=== PATIENT | female | born 1945 | race Caucasian/White ===

== ENCOUNTER 2016-08-31 16:25 | Inpatient (IN) ==
[2016-09-01 05:35] LABS: Basophils % 0.4 %; Eosinophils # 0.1 K/mcL (0.0-0.6); Hematocrit 38.7 % (35.3-44.9); Immature Granulocytes % 0.2 % (0-4); Lymphocytes # 1.5 K/mcL (0.6-4.6); Lymphocytes % 30.6 %; Mean Corpuscular HGB Conc 33.6 g/dL (31.6-35.5); Mean Corpuscular Hemoglobin 28.7 pg (28.0-33.3); Mean Corpuscular Volume 85.4 fL (83.0-100.0); Mean Platelet Volume 9.4 fL (9.4-12.4); Monocytes # 0.7 K/mcL (0.0-1.3); Monocytes % 13.4 %; Neutrophils # 2.6 K/mcL (1.6-8.9); Platelet Count 223 K/mcL (140-400); Red Blood Count 4.53 M/mcL (3.82-4.97); Red Cell Distribution Width 13.1 % (11.5-14.5); Segmented Neutrophils % 53.4 %
[2016-09-01 05:37] LABS: INR 1.1; Prothrombin Time 11.8 Seconds (9.4-12.1)
[2016-09-01 05:39] LABS: Activated Partial Thrombo Time 33.1 Seconds (26.0-36.0)
[2016-09-01 05:44] LABS: BUN/Creatinine Ratio 19 (6-26); Blood Urea Nitrogen 15 mg/dL (7-20); Calcium 9.5 mg/dL (8.6-10.8); Carbon Dioxide 23 mEq/L (19-29); Chloride 109 mEq/L (98-109); Glucose 95 mg/dL (70-99); Osmolality,Calculated 293 (280-300); Sodium 141 mEq/L (136-145); eGFR For African Americans > 60 (> 60); eGFR For Non-African Americans > 60 (> 60)
[2016-09-01] MEDS: Aspirin 81 MG TAB.CHEW PO SCH (09:20)
--- NOTE | 2016-09-01 12:44 | Internal Med History&Physical ---
Date of Encounter: 09/01/16 Time of Encounter: 12:42 Assessment and Plan (1) CVA (cerebral vascular accident) Current visit: Yes Status: Acute CVA with some left-sided weakness. Qualifiers: Qualified Code(s): I63.9 - Cerebral infarction, unspecified (2) MVP (mitral valve prolapse) Current visit: No Status: Acute Currently MVP is not causing any problems from clinic clear where it may have contributed to her CVA revealed. Bowel Internal Medicine - H&P: HPI Chief complaint: CVA Admitted From: Hospital to Hospital Transfer Plans for Post Hospital Care: Home History of present illness: Ms. Glover is a 71 year old female Past Med Surg Social Fam HX - Past Medical History Medical history: arthritis, CVA, valvular heart disease Psychiatric history: no psych history - Past Surgical History Surgical History: hysterectomy - Social History Smoking Status: Never smoker Internal Medicine - H&P: Meds No Known Home Drugs 08/31/16 [History] Allergies No Known Allergies Allergy (Verified 08/31/16 17:08) All Systems PM: A 10-system review of systems was performed and is negative for pertinent findings except as documented above in the HPI. - Constitutional Vitals: Temp Pulse Resp BP Pulse Ox 98.2 F 64 18 128/82 93 L 09/01/16 12:19 09/01/16 12:19 09/01/16 12:19 09/01/16 12:19 09/01/16 12:19 - Head Head exam: Present: atraumatic, normal inspection, normocephalic - Neck Neck exam general surgery: Present: supple, trachea midline. Absent: lymphadenopathy - Respiratory Respiratory exam: Present: CTAB. Absent: accessory muscle use, rales, rhonchi, wheezes - Cardiovascular Cardiovascular exam: Present: RRR, +S1, +S2. Absent: diastolic murmur, gallop, rubs, systolic murmur Additional comments: History of mitral valve prolapse - GI/Abdominal GI/Abdominal exam: Present: normal bowel sounds, soft, no peritoneal signs. Absent: distended, tenderness Internal Med - H&P Results - Labs CBC & Chem 7: 09/01/16 05:10 09/01/16 05:10 Labs: Short CBC 09/01/16 Range/Units 05:10 WBC 4.9 (4.3-11.1) K/mcL Hgb 13.0 (11.5-15.4) g/dL Hct 38.7 (35.3-44.9) % Plt Count 223 (140-400) K/mcL Neutrophils # 2.6 (1.6-8.9) K/mcL BMP 09/01/16 05:10 Sodium 141 Potassium 4.0 Chloride 109 Carbon Dioxide 23 BUN 15 Creatinine 0.81 Glucose 95 Calcium 9.5 Lab is stable - VTE Documentation of Mechanical Device: Graduated compression elastic hosiery
[2016-09-02] MEDS: Aspirin 81 MG TAB.CHEW PO SCH (10:11)
--- NOTE | 2016-09-02 11:42 | Internal Med Progress Note ---
Date of Encounter: 09/02/16 Time of Encounter: 11:40 - Assessment and plan (1) CVA (cerebral vascular accident) Current Visit: Yes Status: Acute Assessment and plan: Residual left-sided neglect. Double vision. PTOT to work on safety and balance. We will work on improving ADL Qualifiers: CVA mechanism: occlusion Precerebral and cerebral artery: anterior cerebral artery Laterality of affected vessel: unspecified Qualified Code(s) : I63.529 - Cerebral infarction due to unspecified occlusion or stenosis of unspecified anterior cerebral artery - Time Spent With Patient less than 15 minutes - Subjective Interval history: Still complaining of the same left-sided neglect" and blurred vision. No headache. No shortness of breath. No chest pain. No confusion. Good oral intake. No pain. - Constitutional Vitals: Temp Pulse Resp BP Pulse Ox 97.1 F L 54 16 113/67 95 09/02/16 07:49 09/02/16 07:49 09/02/16 07:49 09/02/16 07:49 09/02/16 07:49 General appearance: Present: A&O X 3, pleasant, no acute distress - Eye Additional comments: Blurred vision noted. - Respiratory Respiratory exam: Present: CTAB. Absent: accessory muscle use, rales, rhonchi, wheezes - Cardiovascular Cardiovascular exam: Present: RRR, +S1, +S2. Absent: diastolic murmur, gallop, rubs, systolic murmur - GI/Abdominal GI/Abdominal exam: Present: normal bowel sounds, soft, no peritoneal signs. Absent: distended, tenderness - Extremities Exam Extremities exam: Present: warm, radial pulses palpable and symetrical. Absent : calf tenderness, cyanotic, pedal edema Internal Medicine: Result - Labs CBC & Chem 7: 09/01/16 05:10 09/01/16 05:10 - ABG Interpretation ABG results: PT/INR, D-dimer PT 11.8 Seconds (9.4-12.1) 09/01/16 05:10 - VTE Documentation of Mechanical Device: Graduated compression elastic hosiery Consult Discharge Plan - Plan Referrals: Evelia Madera MD [Primary Care Provider] -
--- NOTE | 2016-09-03 00:11 | Internal Med Progress Note ---
Date of Encounter: 09/03/16 Time of Encounter: 07:55 - Assessment and plan (1) CVA (cerebral vascular accident) Current Visit: Yes Status: Acute Assessment and plan: Residual left-sided neglect. Patient compensating well for diplopia at this time. Will continue to assess.Double vision. PTOT to work on safety and balance. We will work on improving ADL Qualifiers: CVA mechanism: occlusion Precerebral and cerebral artery: anterior cerebral artery Laterality of affected vessel: unspecified Qualified Code(s) : I63.529 - Cerebral infarction due to unspecified occlusion or stenosis of unspecified anterior cerebral artery - Time Spent With Patient less than 15 minutes - Subjective Interval history: Still complaining of the same left-sided neglect" and blurred vision. No headache. No shortness of breath. No chest pain. No confusion. Good oral intake. No pain. - Constitutional Vitals: Temp Pulse Resp BP Pulse Ox 97.3 F L 93 20 124/57 93 L 09/02/16 19:12 09/02/16 19:12 09/02/16 19:12 09/02/16 19:12 09/02/16 19:12 General appearance: Present: A&O X 3, pleasant, no acute distress - Eye Eye exam: Absent: nystagmus Additional comments: Diplopia noted - Respiratory Respiratory exam: Present: CTAB. Absent: accessory muscle use, rales, rhonchi, wheezes - Cardiovascular Cardiovascular exam: Present: RRR, +S1, +S2. Absent: diastolic murmur, gallop, rubs, systolic murmur - GI/Abdominal GI/Abdominal exam: Present: normal bowel sounds, soft, no peritoneal signs. Absent: distended, tenderness - Extremities Exam Extremities exam: Present: warm, radial pulses palpable and symetrical. Absent : calf tenderness, cyanotic, pedal edema - Neurological Exam Neurological exam: Present: oriented X3, no focal deficits. Absent: pronater drift, facial droop, speech deficit Internal Medicine: Result - Labs CBC & Chem 7: 09/01/16 05:10 09/01/16 05:10 - ABG Interpretation ABG results: PT/INR, D-dimer PT 11.8 Seconds (9.4-12.1) 09/01/16 05:10 - VTE Documentation of Mechanical Device: Graduated compression elastic hosiery Consult Discharge Plan - Plan Referrals: Gryniuk,Evelia, MD [Primary Care Provider] -
[2016-09-03] MEDS: Aspirin 81 MG TAB.CHEW PO SCH (08:03)
[2016-09-04] MEDS: Aspirin 81 MG TAB.CHEW PO SCH (10:14)
--- NOTE | 2016-09-04 13:14 | Internal Med Progress Note ---
Date of Encounter: 09/04/16 Time of Encounter: 13:13 - Assessment and plan (1) CVA (cerebral vascular accident) Current Visit: Yes Status: Acute Assessment and plan: Patient's here for rotation due to her CVA. Please see PT OT TR as speech note Qualifiers: CVA mechanism: occlusion Precerebral and cerebral artery: anterior cerebral artery Laterality of affected vessel: unspecified Qualified Code(s) : I63.529 - Cerebral infarction due to unspecified occlusion or stenosis of unspecified anterior cerebral artery (2) MVP (mitral valve prolapse) Current Visit: No Status: Acute Assessment and plan: Not currently a clinical problem - Time Spent With Patient less than 15 minutes - Subjective Interval history: No new problems noted. - Constitutional Vitals: Temp Pulse Resp BP Pulse Ox 98.1 F 62 16 125/66 96 09/04/16 07:00 09/04/16 07:51 09/04/16 07:51 09/04/16 07:51 09/04/16 07:51 General appearance: Present: A&O X 3, pleasant, no acute distress - Head Head exam: Present: atraumatic, normal inspection, normocephalic - Neck Neck exam general surgery: Present: supple, trachea midline. Absent: lymphadenopathy - Respiratory Respiratory exam: Present: CTAB. Absent: accessory muscle use, rales, rhonchi, wheezes - Cardiovascular Cardiovascular exam: Present: RRR, +S1, +S2. Absent: diastolic murmur, gallop, rubs, systolic murmur Internal Medicine: Result - Labs CBC & Chem 7: 09/01/16 05:10 09/01/16 05:10 Labs: Lab is stable - ABG Interpretation ABG results: PT/INR, D-dimer PT 11.8 Seconds (9.4-12.1) 09/01/16 05:10 - VTE Documentation of Mechanical Device: Graduated compression elastic hosiery Consult Discharge Plan - Plan Referrals: Evelia Madera MD [Primary Care Provider] -
--- NOTE | 2016-09-04 15:26 | Psychological Evaluation ---
Date of Encounter: 09/04/16 Time of Encounter: 10:30 History of Present Illness History of present illness: Ms. Glover is a 71 year old female admitted to [facility] for inpatient rehabilitation following a recent CVA. Ms. Glover acknowledged that she had experienced some weakness in her left hand, changes in her vision and problems with her balance for several days before she realized that she needed medical attention. She was seen on this date to assess her current cognitive and emotional functioning. Past Medical History Medical history: Significant for arthritis and valvular heart disease. - Psychiatric History Psychiatric history: Reports: no psych history (In addition, there is no family history of psychiatric or mental health issues.) Home Medications and Allergies No Known Home Drugs 08/31/16 [History] Allergies No Known Allergies Allergy (Verified 08/31/16 17:08) Social History - Social History Social History: Ms. Glover and her have been for 46 years. He was present for this evaluation. They have three sons (ages 44, 41 and 38). Prior to her hospitalization, Ms. Glover reported that she stayed busy feeding animals and cooking for her . 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 She reported that she used to enjoy riding her bike and seeing friends every Friday. Her social support system consists of her and her friends. - Tobacco Use Smoking Status: Never smoker - Alcohol Use Alcohol Use: unknown - Drug Use Drug Use: none Cognitive/Emotional Assessment - Cognitive Ability Additional Findings: Ms Glover was alert, attentive and fully oriented. Speech was fluent, clear and effective. Thought processes were logical, goal-directed and coherent. There were no signs of delusional ideation or perceptual disturbance. She performed within normal limits on measures of attention/concentration, sentence repetition, confrontational naming and auditory comprehension. She also performed within the normal range on measures of abstract reasoning and social judgment. Delayed recall/memory was not assessed. She exhibited some signs of impulsivity and responded in a rapid manner but was able to hold back her answers until after the questions were asked. - Emotional Status Additional Findings: Ms. Glover was pleasant, cooperative and friendly. She denied any signs of depression or irritability. She acknowledged that she has felt somewhat anxious at times since the CVA. We spent some time discussing what to expect in stroke recovery and she reported that she realizes it takes time. We also spent time talking about finding balance between active participation in her rehab therapies and getting rest when she feels tired. Ms. Glover reported that her rehab goal is to walk with a walker so that she needs less assistance from her in going to the bathroom. Assessment & Plan - Diagnosis (1) CVA (cerebral vascular accident) Qualifiers: CVA mechanism: occlusion Precerebral and cerebral artery: anterior cerebral artery Laterality of affected vessel: unspecified Qualified Code(s) : I63.529 - Cerebral infarction due to unspecified occlusion or stenosis of unspecified anterior cerebral artery - Treatment Plan Treatment Plan/Recommendations: Ms. Glover appears to be doing fairly well from a cognitive and emotional perspective following her recent CVA. Will follow as needed to provide emotional support. She may benefit from breaks in-between therapy sessions as she has reported feeling very physically and mentally fatigued with activity. Procedures - Intervention Interventions: Patient/Parent Education - Session Time Session Start Time: 10:30 Session Stop Time: 11:00
--- NOTE | 2016-09-04 15:40 | Physcial Medicine-Consult Note ---
Date of Encounter: 09/05/16 Time of Encounter: 15:37 Physical Medicine - AP (1) CVA (cerebral vascular accident) Status: Acute Assessment and plan: 1. CVA: Patient will continue with intensive PT/OT/ST/ TR. Continue patching to right eye for double vision. While she appears cognitively intact, she appears to have issues with carry over with therapeutic education. We will continue to work on strategies to address recall for safety. Estimated length of stay is 4 weeks. We will evaluate weekly and adjust her discharge date based on progress. Code(s): I63.9 - Cerebral infarction, unspecified SNOMED Code(s): 271387896 Physical Medicine - HPI - Data of Consult Consult date: 09/04/16 Requesting Physician: Rodrigo Pathak DO Primary Care Provider: Evelia Madera MD - Consult Narrative Reason for consult: CVA History of present illness: Ms. Glover is a 71 year old female who was admitted for inpatient rehabilitation following a CVA. Patient presented to an outside hospital with complaints of progressive left sided numbness and falls. Her initial head CT revealed a subcortical lesion in the right cerebral hemisphere. Patient was stabilized and transferred for inpatient rehabilitation. CC: Rodrigo Pathak DO Past Med Surg Social Fam HX - Past Medical History Medical history: arthritis, CVA, valvular heart disease Psychiatric history: no psych history - Past Surgical History Surgical History: hysterectomy - Social History Smoking Status: Never smoker Medications and Allergies No Known Home Drugs 08/31/16 [History] Allergies No Known Allergies Allergy (Verified 08/31/16 17:08) - Constitutional Constitutional: Present: fatigue - Cardiovascular Cardiovascular: Absent: chest pain, diaphoresis, dyspnea - Respiratory Respiratory: Absent: cough, dyspnea, dyspnea on exertion - Gastrointestinal Gastrointestinal: Absent: abdominal pain, fecal incontinence, loose stools - Genitourinary Genitourinary: Absent: urinary frequency, urinary urgency - Musculoskeletal Musculoskeletal: Absent: arthralgias - Neurological Neurological: Present: other visual disturbances. Absent: headache(s) - Psychiatric Psychiatric: Absent: abnormal sleep pattern, depression Physical Medicine - Exam - Constitutional Vitals: Temp Pulse Resp BP Pulse Ox 98.1 F 62 16 125/66 96 09/04/16 07:00 09/04/16 07:51 09/04/16 07:51 09/04/16 07:51 09/04/16 07:51 Exam: Patient is alert and oriented to person, place and date. She answers questions appropriately. Able to follow 2 step commands without difficulty. - Head Head exam: Present: atraumatic, normal inspection, normocephalic Additional comments: Extraocular movements in tight. Pupils equal and reactive to light. Double vision in right visual field. Tongue is midline. No facial droop. - Respiratory Respiratory exam: Present: CTAB - Cardiovascular Cardiovascular exam: Present: RRR - GI/Abdominal GI/Abdominal exam: Present: normal bowel sounds, soft. Absent: tenderness - Extremities Exam Extremities exam: Present: normal inspection. Absent: calf tenderness Additional comments: Reflexes are absent symmetrically in the bilateral upper and lower limbs. Motor strength is 5/5 in the bilateral upper and lower limbs. Physical Medicine - Results - Labs CBC & Chem 7: 09/01/16 05:10 09/01/16 05:10 Consult Discharge Plan - Plan Referrals: Evelia Madera MD [Primary Care Provider] -
[2016-09-05] MEDS: Aspirin 81 MG TAB.CHEW PO SCH (08:50)
--- NOTE | 2016-09-05 13:20 | Internal Med Progress Note ---
Date of Encounter: 09/05/16 Time of Encounter: 13:18 - Assessment and plan (1) CVA (cerebral vascular accident) Current Visit: Yes Status: Acute Assessment and plan: Patient had a CVA but is working with therapist and doing well right now her only problem specifically still her vision in which she has diplopia. Qualifiers: CVA mechanism: occlusion Precerebral and cerebral artery: anterior cerebral artery Laterality of affected vessel: unspecified Qualified Code(s) : I63.529 - Cerebral infarction due to unspecified occlusion or stenosis of unspecified anterior cerebral artery (2) MVP (mitral valve prolapse) Current Visit: No Status: Acute Assessment and plan: Not clinically relevant at this time - Time Spent With Patient less than 15 minutes - Subjective Interval history: No new problems noted. Tolerating therapy well cooperating she is very pleasant doing well - Constitutional Vitals: Temp Pulse Resp BP Pulse Ox 98.2 F 67 16 112/74 93 L 09/05/16 07:00 09/05/16 07:00 09/05/16 07:00 09/05/16 07:00 09/05/16 07:00 General appearance: Present: A&O X 3, pleasant, no acute distress - Head Head exam: Present: atraumatic, normocephalic - Neck Neck exam general surgery: Present: supple, trachea midline. Absent: lymphadenopathy - Respiratory Respiratory exam: Present: CTAB. Absent: accessory muscle use, rales, rhonchi, wheezes - Cardiovascular Cardiovascular exam: Present: RRR, +S1, +S2. Absent: diastolic murmur, gallop, rubs, systolic murmur - GI/Abdominal GI/Abdominal exam: Present: normal bowel sounds, soft, no peritoneal signs. Absent: distended, tenderness Internal Medicine: Result - Labs CBC & Chem 7: 09/01/16 05:10 09/01/16 05:10 Labs: Lab is normal - ABG Interpretation ABG results: PT/INR, D-dimer PT 11.8 Seconds (9.4-12.1) 09/01/16 05:10 - VTE Documentation of Mechanical Device: Graduated compression elastic hosiery Consult Discharge Plan - Plan Referrals: Evelia Madera MD [Primary Care Provider] -
[2016-09-06] MEDS: Aspirin 81 MG TAB.CHEW PO SCH (08:51)
--- NOTE | 2016-09-06 14:03 | Internal Med Progress Note ---
Date of Encounter: 09/06/16 Time of Encounter: 14:01 - Assessment and plan (1) CVA (cerebral vascular accident) Current Visit: Yes Status: Acute Assessment and plan: Patient is working with all modalities of therapy with a good attitude and voices no new complaints. Qualifiers: CVA mechanism: occlusion Precerebral and cerebral artery: anterior cerebral artery Laterality of affected vessel: unspecified Qualified Code(s) : I63.529 - Cerebral infarction due to unspecified occlusion or stenosis of unspecified anterior cerebral artery (2) MVP (mitral valve prolapse) Current Visit: No Status: Acute Assessment and plan: Currently no evidence of complications with MVP - Time Spent With Patient less than 15 minutes - Subjective Interval history: Patient continues to have good attitude and working with therapist. There probably is some slight cognitive hesitancy. In addition the vision problem still exists - Constitutional Vitals: Temp Pulse Resp BP Pulse Ox 97.9 F 59 18 116/66 96 09/06/16 06:54 09/06/16 06:54 09/06/16 06:54 09/06/16 06:54 09/06/16 06:54 General appearance: Present: A&O X 3, pleasant, no acute distress - Head Head exam: Present: atraumatic, normal inspection, normocephalic - Neck Neck exam general surgery: Present: supple, trachea midline. Absent: lymphadenopathy - Respiratory Respiratory exam: Present: CTAB. Absent: accessory muscle use, rales, rhonchi, wheezes - Cardiovascular Cardiovascular exam: Present: RRR, +S1, +S2. Absent: diastolic murmur, gallop, rubs, systolic murmur Internal Medicine: Result - Labs CBC & Chem 7: 09/01/16 05:10 09/01/16 05:10 Labs: Lab is all normal - ABG Interpretation ABG results: PT/INR, D-dimer PT 11.8 Seconds (9.4-12.1) 09/01/16 05:10 - VTE Documentation of Mechanical Device: Graduated compression elastic hosiery Consult Discharge Plan - Plan Referrals: Evelia Madera MD [Primary Care Provider] -
[2016-09-07] MEDS: Aspirin 81 MG TAB.CHEW PO SCH (08:49)
--- NOTE | 2016-09-07 10:30 | Internal Med Progress Note ---
Date of Encounter: 09/07/16 Time of Encounter: 10:27 - Assessment and plan (1) CVA (cerebral vascular accident) Current Visit: Yes Status: Acute Assessment and plan: Still has the same left-sided neglect. Still has the double vision. Requiring cues for the left-sided neglect. Tends to lean to the left and run into object.CVA: Patient will continue with intensive PT/OT/ST/ TR. Continue patching to right eye for double vision. appears cognitively intact, We will continue to work on strategies to address recall for safety. . We will evaluate weekly and adjust her discharge date based on progress. Qualifiers: CVA mechanism: occlusion Precerebral and cerebral artery: anterior cerebral artery Laterality of affected vessel: unspecified Qualified Code(s) : I63.529 - Cerebral infarction due to unspecified occlusion or stenosis of unspecified anterior cerebral artery - Time Spent With Patient less than 15 minutes - Subjective Interval history: Still complaining of the same left-sided neglect" and blurred vision but feels that she is getting better. No headache. No shortness of breath. No chest pain. No confusion. Good oral intake. No pain. - Constitutional Vitals: Temp Pulse Resp BP Pulse Ox 97.4 F L 57 14 110/78 93 L 09/07/16 07:00 09/07/16 07:00 09/06/16 19:00 09/07/16 07:00 09/07/16 07:00 General appearance: Present: A&O X 3, pleasant, no acute distress - Respiratory Respiratory exam: Present: CTAB. Absent: accessory muscle use, rales, rhonchi, wheezes - Cardiovascular Cardiovascular exam: Present: RRR, +S1, +S2. Absent: diastolic murmur, gallop, rubs, systolic murmur - GI/Abdominal GI/Abdominal exam: Present: normal bowel sounds, soft, no peritoneal signs. Absent: distended, tenderness - Extremities Exam Extremities exam: Present: warm, radial pulses palpable and symetrical. Absent : calf tenderness, cyanotic, pedal edema - Neurological Exam Neurological exam: Present: oriented X3 - Expanded Neurological Exam Patient oriented to: Present: person, place, time Speech: Present: fluid speech Cranial Nerves: EOM's intact PM: Normal, nystagmus PM: Normal Internal Medicine: Result - Labs CBC & Chem 7: 09/01/16 05:10 09/01/16 05:10 - ABG Interpretation ABG results: PT/INR, D-dimer PT 11.8 Seconds (9.4-12.1) 09/01/16 05:10 - VTE Documentation of Mechanical Device: Graduated compression elastic hosiery Consult Discharge Plan - Plan Referrals: Evelia Madera MD [Primary Care Provider] -
[2016-09-08] MEDS: Aspirin 81 MG TAB.CHEW PO SCH (09:11)
--- NOTE | 2016-09-08 11:03 | Internal Med Progress Note ---
Date of Encounter: 09/08/16 Time of Encounter: 11:02 - Assessment and plan (1) CVA (cerebral vascular accident) Current Visit: Yes Status: Acute Assessment and plan: Still has the same left-sided neglect. Still has the double vision. Requiring cues for the left-sided neglect. Tends to lean to the left and run into object.CVA: Patient will continue with intensive PT/OT/ST/ TR. Continue patching to right eye for double vision. appears cognitively intact, We will continue to work on strategies to address recall for safety. . We will evaluate weekly and adjust her discharge date based on progress. Qualifiers: CVA mechanism: occlusion Precerebral and cerebral artery: anterior cerebral artery Laterality of affected vessel: unspecified Qualified Code(s) : I63.529 - Cerebral infarction due to unspecified occlusion or stenosis of unspecified anterior cerebral artery - Time Spent With Patient less than 15 minutes - Subjective Interval history: Still complaining of the same left-sided neglect" and blurred vision but feels that she is getting better. No headache. No shortness of breath. No chest pain. No confusion. Good oral intake. No pain. - Constitutional Vitals: Temp Pulse Resp BP Pulse Ox 98.4 F 67 18 108/61 94 L 09/08/16 07:02 09/08/16 07:02 09/08/16 07:02 09/08/16 07:02 09/08/16 07:02 General appearance: Present: A&O X 3, pleasant, no acute distress - Respiratory Respiratory exam: Present: CTAB. Absent: accessory muscle use, rales, rhonchi, wheezes - Cardiovascular Cardiovascular exam: Present: RRR, +S1, +S2. Absent: diastolic murmur, gallop, rubs, systolic murmur - Extremities Exam Extremities exam: Present: warm, radial pulses palpable and symetrical. Absent : calf tenderness, cyanotic, pedal edema - Neurological Exam Neurological exam: Present: abnormal gait, alert, oriented X3 (Same left-sided neglect. Double vision noted) Internal Medicine: Result - Labs CBC & Chem 7: 09/01/16 05:10 09/01/16 05:10 - ABG Interpretation ABG results: PT/INR, D-dimer PT 11.8 Seconds (9.4-12.1) 09/01/16 05:10 - VTE Documentation of Mechanical Device: Graduated compression elastic hosiery Consult Discharge Plan - Plan Referrals: Evelia Madera MD [Primary Care Provider] -
[2016-09-08] MEDS: Sennosides/Docusate Sodium TABLET PO PRN (19:32)
[2016-09-09 05:24] LABS: Basophils % 0.4 %; Eosinophils # 0.2 K/mcL (0.0-0.6); Eosinophils % 3.3 %; Hemoglobin 12.2 g/dL (11.5-15.4); Immature Granulocytes % 0.4 % (0-4); Lymphocytes # 1.9 K/mcL (0.6-4.6); Lymphocytes % 38.3 %; Mean Corpuscular Hemoglobin 28.4 pg (28.0-33.3); Monocytes # 0.7 K/mcL (0.0-1.3); Monocytes % 14.2 %; Neutrophils # 2.1 K/mcL (1.6-8.9); Platelet Count 221 K/mcL (140-400); Red Cell Distribution Width 13.2 % (11.5-14.5); Segmented Neutrophils % 43.4 %
[2016-09-09 05:43] LABS: BUN/Creatinine Ratio 21 (6-26); Blood Urea Nitrogen 17 mg/dL (7-20); Calcium 9.4 mg/dL (8.6-10.8); Carbon Dioxide 22 mEq/L (19-29); Chloride 110 mEq/L (98-109); Glucose 89 mg/dL (70-99); Osmolality,Calculated 295 (280-300); Potassium 4.1 mEq/L (3.5-4.5); Sodium 142 mEq/L (136-145); eGFR For African Americans > 60 (> 60); eGFR For Non-African Americans > 60 (> 60)
[2016-09-09] MEDS: Aspirin 81 MG TAB.CHEW PO SCH (10:11)
--- NOTE | 2016-09-09 13:36 | Internal Med Progress Note ---
Date of Encounter: 09/09/16 Time of Encounter: 13:33 - Assessment and plan (1) CVA (cerebral vascular accident) Current Visit: Yes Status: Acute Assessment and plan: Continuing to show some progress but needs to be focused and be told to pay attention to the task at a Qualifiers: CVA mechanism: occlusion Precerebral and cerebral artery: anterior cerebral artery Laterality of affected vessel: unspecified Qualified Code(s) : I63.529 - Cerebral infarction due to unspecified occlusion or stenosis of unspecified anterior cerebral artery (2) MVP (mitral valve prolapse) Current Visit: No Status: Acute Assessment and plan: Currently her clinical problem - Time Spent With Patient less than 15 minutes - Subjective Interval history: Her biggest concern right now patient's lack of focus. She is to pay attention to what she is doing but has a very short span of attention. When ambulating she leans to the left and is unstable with leg scissoring. She would fall if left alone. The staff was also encouraging her to switch her patch from February periodically. - Constitutional Vitals: Temp Pulse Resp BP Pulse Ox 97.2 F L 62 16 109/72 94 L 09/09/16 08:49 09/09/16 08:49 09/09/16 08:49 09/09/16 08:49 09/09/16 08:49 General appearance: Present: A&O X 3, pleasant, no acute distress - Head Head exam: Present: atraumatic, normal inspection, normocephalic - Neck Neck exam general surgery: Present: supple, trachea midline. Absent: lymphadenopathy - Respiratory Respiratory exam: Present: CTAB. Absent: accessory muscle use, rales, rhonchi, wheezes - Cardiovascular Cardiovascular exam: Present: RRR, +S1, +S2. Absent: diastolic murmur, gallop, rubs, systolic murmur Internal Medicine: Result - Labs CBC & Chem 7: 09/09/16 04:45 09/09/16 04:45 Labs: Short CBC 09/09/16 Range/Units 04:45 WBC 4.9 (4.3-11.1) K/mcL Hgb 12.2 (11.5-15.4) g/dL Hct 37.0 (35.3-44.9) % Plt Count 221 (140-400) K/mcL Neutrophils # 2.1 (1.6-8.9) K/mcL BMP 09/09/16 04:45 Sodium 142 Potassium 4.1 Chloride 110 H Carbon Dioxide 22 BUN 17 Creatinine 0.80 Glucose 89 Calcium 9.4 Lab basically looks good - ABG Interpretation ABG results: PT/INR, D-dimer PT 11.8 Seconds (9.4-12.1) 09/01/16 05:10 - VTE Documentation of Mechanical Device: Graduated compression elastic hosiery Consult Discharge Plan - Plan Referrals: Evelia Madera MD [Primary Care Provider] -
[2016-09-10] MEDS: Aspirin 81 MG TAB.CHEW PO SCH (08:05)
--- NOTE | 2016-09-10 13:36 | Internal Med Progress Note ---
Date of Encounter: 09/10/16 Time of Encounter: 13:35 - Assessment and plan (1) CVA (cerebral vascular accident) Current Visit: Yes Status: Acute Assessment and plan: Sensorium PTOT GRN speech due to her recent CVA Qualifiers: CVA mechanism: occlusion Precerebral and cerebral artery: anterior cerebral artery Laterality of affected vessel: unspecified Qualified Code(s) : I63.529 - Cerebral infarction due to unspecified occlusion or stenosis of unspecified anterior cerebral artery (2) MVP (mitral valve prolapse) Current Visit: No Status: Acute Assessment and plan: No clinical evidence of problems with the MVP - Time Spent With Patient less than 15 minutes - Subjective Interval history: Her biggest concern right now patient's lack of focus. She is to pay attention to what she is doing but has a very short span of attention. When ambulating she leans to the left and is unstable with leg scissoring. She would fall if left alone. The staff was also encouraging her to switch her patch from February periodically. - Constitutional Vitals: Temp Pulse Resp BP Pulse Ox 97.4 F L 56 16 131/85 93 L 09/10/16 07:00 09/10/16 07:00 09/10/16 07:00 09/10/16 07:00 09/10/16 07:00 General appearance: Present: A&O X 3, pleasant, no acute distress - Head Head exam: Present: atraumatic, normal inspection, normocephalic - Neck Neck exam general surgery: Present: supple, trachea midline. Absent: lymphadenopathy - Respiratory Respiratory exam: Present: CTAB. Absent: accessory muscle use, rales, rhonchi, wheezes - Cardiovascular Cardiovascular exam: Present: RRR, +S1, +S2. Absent: diastolic murmur, gallop, rubs, systolic murmur Internal Medicine: Result - Labs CBC & Chem 7: 09/09/16 04:45 09/09/16 04:45 Labs: Lab appears stable - ABG Interpretation ABG results: PT/INR, D-dimer PT 11.8 Seconds (9.4-12.1) 09/01/16 05:10 - VTE Documentation of Mechanical Device: Graduated compression elastic hosiery Consult Discharge Plan - Plan Referrals: Evelia Madera MD [Primary Care Provider] -
[2016-09-11] MEDS: Aspirin 81 MG TAB.CHEW PO SCH (08:23)
--- NOTE | 2016-09-11 13:42 | Internal Med Progress Note ---
Date of Encounter: 09/11/16 Time of Encounter: 13:41 - Assessment and plan (1) CVA (cerebral vascular accident) Current Visit: Yes Status: Acute Assessment and plan: Patient's workup PT OT TR and speech Qualifiers: CVA mechanism: occlusion Precerebral and cerebral artery: anterior cerebral artery Laterality of affected vessel: unspecified Qualified Code(s) : I63.529 - Cerebral infarction due to unspecified occlusion or stenosis of unspecified anterior cerebral artery (2) MVP (mitral valve prolapse) Current Visit: No Status: Acute Assessment and plan: Currently not a problem - Time Spent With Patient less than 15 minutes - Subjective Interval history: Problems still focus. I am asking that the staff and family to visit her working hours. Patient becomes too distracted to focus on her objects - Constitutional Vitals: Temp Pulse Resp BP Pulse Ox 98.8 F 51 16 132/79 96 09/11/16 07:00 09/11/16 07:00 09/11/16 07:00 09/11/16 07:00 09/11/16 07:00 General appearance: Present: A&O X 3, pleasant, no acute distress - Head Head exam: Present: atraumatic, normal inspection, normocephalic - Eye Eye exam: Present: normal appearance (We are still switching the patch back and forth to improve her focus in vision), PERRL, conjuntiva pink, sclera anicteric Pupils: Present: PERRL Internal Medicine: Result - Labs CBC & Chem 7: 09/09/16 04:45 09/09/16 04:45 Labs: Lab is stable - ABG Interpretation ABG results: PT/INR, D-dimer PT 11.8 Seconds (9.4-12.1) 09/01/16 05:10 - VTE Documentation of Mechanical Device: Graduated compression elastic hosiery Consult Discharge Plan - Plan Referrals: Evelia Madera MD [Primary Care Provider] -
--- NOTE | 2016-09-11 15:23 | Physical Med Progress Note ---
Date of Encounter: 09/11/16 Time of Encounter: 15:21 Assessment and Plan (1) CVA (cerebral vascular accident) Current Visit: Yes Status: Acute Qualifiers: CVA mechanism: occlusion Precerebral and cerebral artery: anterior cerebral artery Laterality of affected vessel: unspecified Qualified Code(s) : I63.529 - Cerebral infarction due to unspecified occlusion or stenosis of unspecified anterior cerebral artery Physical Medicine-PN: Subj Interval history: PMR PCC note Ms. Glover continues to suffer from significant difficulty with attention. She is unable to maintain focus. She requires max cues to maintain safety. Patient has poor insight into her deficits. She is impulsive. Her balance has improved, walking has improved. Plan for family meeting. In light of her cognitive deficits, patient will require 24 hour supervision at discharge. - Constitutional Vitals: Vital Signs Temp Pulse Resp BP Pulse Ox 09/11/16 07:00 98.8 F 51 16 132/79 96 09/10/16 19:00 98.5 F 65 18 114/69 97 Intake and Output 09/10/16 09/11/16 09/11/16 23:59 07:59 15:59 Intake Total 120 / 120 240 / 240 Balance 120 / 120 240 / 240 Intake: Oral 120 / 120 240 / 240 Other: Meal Dinner Breakfast Percent of Meal Consumed 40% 100% # Voids 1 Physical Medicine-PN: Obj Data - Labs CBC & Chem 7: 09/09/16 04:45 09/09/16 04:45 - ABG Interpretation ABG results: PT/INR, D-dimer PT 11.8 Seconds (9.4-12.1) 09/01/16 05:10 - VTE Documentation of Mechanical Device: Graduated compression elastic hosiery Consult Discharge Plan - Plan Referrals: Evelia Madera MD [Primary Care Provider] -
[2016-09-12] MEDS: Aspirin 81 MG TAB.CHEW PO SCH (08:37)
--- NOTE | 2016-09-12 15:18 | Internal Med Progress Note ---
Date of Encounter: 09/12/16 Time of Encounter: 15:16 - Assessment and plan (1) CVA (cerebral vascular accident) Current Visit: Yes Status: Acute Assessment and plan: Working with PT OT OTR. Focus is still her main problem. We have also asked the staff to tell the family not to participate with her while she is doing her therapy Qualifiers: CVA mechanism: occlusion Precerebral and cerebral artery: anterior cerebral artery Laterality of affected vessel: unspecified Qualified Code(s) : I63.529 - Cerebral infarction due to unspecified occlusion or stenosis of unspecified anterior cerebral artery (2) MVP (mitral valve prolapse) Current Visit: No Status: Acute Assessment and plan: Not currently causing a clinical issue - Time Spent With Patient less than 15 minutes - Subjective Interval history: Problems still focus. I am asking that the staff and family to visit her working hours. Patient becomes too distracted to focus on her objects - Constitutional Vitals: Temp Pulse Resp BP Pulse Ox 97.6 F 60 16 117/68 96 09/12/16 07:00 09/12/16 07:00 09/12/16 07:00 09/12/16 07:00 09/12/16 07:00 General appearance: Present: A&O X 3, pleasant, no acute distress - Head Head exam: Present: atraumatic, normal inspection, normocephalic - Neck Neck exam general surgery: Present: supple, trachea midline. Absent: lymphadenopathy - Respiratory Respiratory exam: Present: CTAB. Absent: accessory muscle use, rales, rhonchi, wheezes - Cardiovascular Cardiovascular exam: Present: RRR, +S1, +S2. Absent: diastolic murmur, gallop, rubs, systolic murmur Internal Medicine: Result - Labs CBC & Chem 7: 09/09/16 04:45 09/09/16 04:45 Labs: Lab looks okay - ABG Interpretation ABG results: PT/INR, D-dimer PT 11.8 Seconds (9.4-12.1) 09/01/16 05:10 - VTE Documentation of Mechanical Device: Graduated compression elastic hosiery Consult Discharge Plan - Plan Referrals: Evelia Madera MD [Primary Care Provider] -
[2016-09-13] MEDS: Aspirin 81 MG TAB.CHEW PO SCH (08:32)
--- NOTE | 2016-09-13 14:03 | Internal Med Progress Note ---
Date of Encounter: 09/13/16 Time of Encounter: 14:02 - Assessment and plan (1) CVA (cerebral vascular accident) Current Visit: Yes Status: Acute Assessment and plan: Patient had CVAs working with the therapist. Qualifiers: CVA mechanism: occlusion Precerebral and cerebral artery: anterior cerebral artery Laterality of affected vessel: unspecified Qualified Code(s) : I63.529 - Cerebral infarction due to unspecified occlusion or stenosis of unspecified anterior cerebral artery (2) MVP (mitral valve prolapse) Current Visit: No Status: Acute Assessment and plan: Currently not a clinical problem - Time Spent With Patient less than 15 minutes - Subjective Interval history: Patient is pleasant cooperative working with her therapist. Dola staffed asked the family not to come during her actual therapy sessions. She gets easily distracted. - Constitutional Vitals: Temp Pulse Resp BP Pulse Ox 98.1 F 53 16 130/73 97 09/13/16 07:00 09/13/16 07:00 09/13/16 07:00 09/13/16 07:00 09/13/16 07:00 General appearance: Present: A&O X 3, pleasant, no acute distress - Head Head exam: Present: atraumatic, normal inspection, normocephalic - Neck Neck exam general surgery: Present: supple, trachea midline. Absent: lymphadenopathy - Respiratory Respiratory exam: Present: CTAB. Absent: accessory muscle use, rales, rhonchi, wheezes - Cardiovascular Cardiovascular exam: Present: RRR, +S1, +S2. Absent: diastolic murmur, gallop, rubs, systolic murmur Internal Medicine: Result - Labs CBC & Chem 7: 09/09/16 04:45 09/09/16 04:45 Labs: Lab is 5 - ABG Interpretation ABG results: PT/INR, D-dimer PT 11.8 Seconds (9.4-12.1) 09/01/16 05:10 - VTE Documentation of Mechanical Device: Graduated compression elastic hosiery Consult Discharge Plan - Plan Referrals: Evelia Madera MD [Primary Care Provider] -
[2016-09-14] MEDS: Aspirin 81 MG TAB.CHEW PO SCH (08:11)
--- NOTE | 2016-09-14 12:44 | Internal Med Progress Note ---
Date of Encounter: 09/14/16 Time of Encounter: 12:42 - Assessment and plan (1) CVA (cerebral vascular accident) Current Visit: Yes Status: Acute Assessment and plan: . Improving with PT and OT in terms of function, ADL, gait, transfer and balance.continues to suffer from significant difficulty with attention. She is unable to maintain focus. She requires max cues to maintain safety. Patient has fair insight into her deficits. She is impulsive. Her balance has improved , walking has improved. Plan for family meeting. In light of her cognitive deficits, patient will require 24 hour supervision at discharge. Qualifiers: CVA mechanism: occlusion Precerebral and cerebral artery: anterior cerebral artery Laterality of affected vessel: unspecified Qualified Code(s) : I63.529 - Cerebral infarction due to unspecified occlusion or stenosis of unspecified anterior cerebral artery - Time Spent With Patient less than 15 minutes - Subjective Interval history: Still complaining of the same left-sided neglect" and blurred vision and double vision has improved significantly. feels that she is getting better. No headache. No shortness of breath. No chest pain. No confusion. Good oral intake. No pain. - Constitutional Vitals: Temp Pulse Resp BP Pulse Ox 98.0 F 54 18 123/74 93 L 09/14/16 07:04 09/14/16 08:07 09/14/16 08:07 09/14/16 08:07 09/14/16 08:07 General appearance: Present: A&O X 3, pleasant, no acute distress - Respiratory Respiratory exam: Present: CTAB. Absent: accessory muscle use, rales, rhonchi, wheezes - Cardiovascular Cardiovascular exam: Present: RRR, +S1, +S2. Absent: diastolic murmur, gallop, rubs, systolic murmur - GI/Abdominal GI/Abdominal exam: Present: normal bowel sounds, soft, no peritoneal signs. Absent: distended, tenderness - Neurological Exam Neurological exam: Present: alert ([place] and improved.), oriented X3 Internal Medicine: Result - Labs CBC & Chem 7: 09/09/16 04:45 09/09/16 04:45 - ABG Interpretation ABG results: PT/INR, D-dimer PT 11.8 Seconds (9.4-12.1) 09/01/16 05:10 - VTE Documentation of Mechanical Device: Graduated compression elastic hosiery Consult Discharge Plan - Plan Referrals: Evelia Madera MD [Primary Care Provider] -
[2016-09-15] MEDS: Aspirin 81 MG TAB.CHEW PO SCH (08:57)
--- NOTE | 2016-09-15 13:44 | Internal Med Progress Note ---
Date of Encounter: 09/15/16 Time of Encounter: 13:42 - Assessment and plan (1) CVA (cerebral vascular accident) Current Visit: Yes Status: Acute Assessment and plan: Patient working with all modalities of therapy. And improving Qualifiers: CVA mechanism: occlusion Precerebral and cerebral artery: anterior cerebral artery Laterality of affected vessel: unspecified Qualified Code(s) : I63.529 - Cerebral infarction due to unspecified occlusion or stenosis of unspecified anterior cerebral artery (2) MVP (mitral valve prolapse) Current Visit: No Status: Acute Assessment and plan: Clinical problem - Time Spent With Patient less than 15 minutes - Subjective Interval history: She has no complaints watching TV and resting today today is Friday - Constitutional Vitals: Temp Pulse Resp BP Pulse Ox 98.5 F 71 20 130/83 93 L 09/15/16 07:00 09/15/16 07:00 09/15/16 07:00 09/15/16 07:00 09/15/16 07:00 General appearance: Present: A&O X 3, pleasant, no acute distress - Head Head exam: Present: atraumatic, normal inspection, normocephalic - Eye Eye exam: Present: PERRL, conjuntiva pink, sclera anicteric Pupils: Present: PERRL Additional comments: Patient is wearing her eye patch. - Neck Neck exam general surgery: Present: supple, trachea midline. Absent: lymphadenopathy - Respiratory Respiratory exam: Present: CTAB. Absent: accessory muscle use, rales, rhonchi, wheezes - Cardiovascular Cardiovascular exam: Present: RRR, +S1, +S2. Absent: diastolic murmur, gallop, rubs, systolic murmur Internal Medicine: Result - Labs CBC & Chem 7: 09/09/16 04:45 09/09/16 04:45 Labs: Labs okay - ABG Interpretation ABG results: PT/INR, D-dimer PT 11.8 Seconds (9.4-12.1) 09/01/16 05:10 - VTE Documentation of Mechanical Device: Graduated compression elastic hosiery Consult Discharge Plan - Plan Referrals: Evelia Madera MD [Primary Care Provider] -
[2016-09-15] MEDS: Sennosides/Docusate Sodium TABLET PO PRN (20:28)
[2016-09-16 05:28] LABS: Basophils % 0.5 %; Eosinophils # 0.2 K/mcL (0.0-0.6); Eosinophils % 2.7 %; Hematocrit 37.7 % (35.3-44.9); Hemoglobin 12.8 g/dL (11.5-15.4); Immature Granulocytes % 0.2 % (0-4); Lymphocytes # 2.1 K/mcL (0.6-4.6); Lymphocytes % 38.2 %; Mean Corpuscular Volume 85.3 fL (83.0-100.0); Mean Platelet Volume 9.5 fL (9.4-12.4); Monocytes # 0.7 K/mcL (0.0-1.3); Neutrophils # 2.5 K/mcL (1.6-8.9); Platelet Count 206 K/mcL (140-400); Red Blood Count 4.42 M/mcL (3.82-4.97); Red Cell Distribution Width 13.1 % (11.5-14.5); Segmented Neutrophils % 45.4 %
[2016-09-16 05:38] LABS: BUN/Creatinine Ratio 18 (6-26); Blood Urea Nitrogen 15 mg/dL (7-20); Calcium 9.7 mg/dL (8.6-10.8); Carbon Dioxide 25 mEq/L (19-29); Chloride 109 mEq/L (98-109); Glucose 93 mg/dL (70-99); Osmolality,Calculated 295 (280-300); Sodium 142 mEq/L (136-145); eGFR For African Americans > 60 (> 60); eGFR For Non-African Americans > 60 (> 60)
[2016-09-16] MEDS: Aspirin 81 MG TAB.CHEW PO SCH (08:02)
--- NOTE | 2016-09-16 13:29 | Internal Med Progress Note ---
Date of Encounter: 09/16/16 Time of Encounter: 13:26 - Assessment and plan (1) CVA (cerebral vascular accident) Current Visit: Yes Status: Acute Assessment and plan: Constant reinforcement to pay attention to task at hand. But the patient is improving and has to be kept to the task at hand Qualifiers: CVA mechanism: occlusion Precerebral and cerebral artery: anterior cerebral artery Laterality of affected vessel: unspecified Qualified Code(s) : I63.529 - Cerebral infarction due to unspecified occlusion or stenosis of unspecified anterior cerebral artery (2) MVP (mitral valve prolapse) Current Visit: No Status: Acute Assessment and plan: Clinically not a problem at this time - Time Spent With Patient less than 15 minutes - Subjective Interval history: If takes [place] reinforcement but the patient's doing a little better concentrating on the task at hand. She obviously seems to have some sort of ADHD adult today because she has real trouble concentrating on one thing in front of her - Constitutional Vitals: Temp Pulse Resp BP Pulse Ox 97.1 F L 56 16 111/62 93 L 09/16/16 07:24 09/16/16 07:24 09/16/16 07:24 09/16/16 07:24 09/16/16 07:24 General appearance: Present: A&O X 3, pleasant, no acute distress - Head Head exam: Present: atraumatic, normal inspection, normocephalic - Neck Neck exam general surgery: Present: supple, trachea midline. Absent: lymphadenopathy - Respiratory Respiratory exam: Present: CTAB. Absent: accessory muscle use, rales, rhonchi, wheezes - Cardiovascular Cardiovascular exam: Present: RRR, +S1, +S2. Absent: diastolic murmur, gallop, rubs, systolic murmur - GI/Abdominal GI/Abdominal exam: Present: normal bowel sounds, soft, no peritoneal signs. Absent: distended, tenderness Internal Medicine: Result - Labs CBC & Chem 7: 09/16/16 05:10 09/16/16 05:10 Labs: Short CBC 09/16/16 Range/Units 05:10 WBC 5.5 (4.3-11.1) K/mcL Hgb 12.8 (11.5-15.4) g/dL Hct 37.7 (35.3-44.9) % Plt Count 206 (140-400) K/mcL Neutrophils # 2.5 (1.6-8.9) K/mcL BMP 09/16/16 05:10 Sodium 142 Potassium 4.0 Chloride 109 Carbon Dioxide 25 BUN 15 Creatinine 0.83 Glucose 93 Calcium 9.7 Labs stable - ABG Interpretation ABG results: PT/INR, D-dimer PT 11.8 Seconds (9.4-12.1) 09/01/16 05:10 - VTE Documentation of Mechanical Device: Graduated compression elastic hosiery Consult Discharge Plan - Plan Referrals: Evelia Madera MD [Primary Care Provider] -
[2016-09-17] MEDS: Aspirin 81 MG TAB.CHEW PO SCH (07:58)
--- NOTE | 2016-09-17 13:20 | Internal Med Progress Note ---
Date of Encounter: 09/17/16 Time of Encounter: 13:19 - Assessment and plan (1) CVA (cerebral vascular accident) Current Visit: Yes Status: Acute Assessment and plan: Working with the staff please see PT OT TR and speech. Qualifiers: CVA mechanism: occlusion Precerebral and cerebral artery: anterior cerebral artery Laterality of affected vessel: unspecified Qualified Code(s) : I63.529 - Cerebral infarction due to unspecified occlusion or stenosis of unspecified anterior cerebral artery (2) MVP (mitral valve prolapse) Current Visit: No Status: Acute Assessment and plan: The causing any clinical difficulties - Time Spent With Patient less than 15 minutes - Subjective Interval history: If takes [place] reinforcement but the patient's doing a little better concentrating on the task at hand. She obviously seems to have some sort of ADHD adult today because she has real trouble concentrating on one thing in front of her - Constitutional Vitals: Temp Pulse Resp BP Pulse Ox 97.6 F 54 18 113/53 96 09/17/16 07:00 09/17/16 07:00 09/17/16 07:00 09/17/16 07:00 09/17/16 07:00 General appearance: Present: A&O X 3, pleasant, no acute distress - Head Head exam: Present: atraumatic, normal inspection, normocephalic - Neck Neck exam general surgery: Present: supple, trachea midline. Absent: lymphadenopathy - Respiratory Respiratory exam: Present: CTAB. Absent: accessory muscle use, rales, rhonchi, wheezes - Cardiovascular Cardiovascular exam: Present: RRR, +S1, +S2. Absent: diastolic murmur, gallop, rubs, systolic murmur Internal Medicine: Result - Labs CBC & Chem 7: 09/16/16 05:10 09/16/16 05:10 Labs: Lab is stable - ABG Interpretation ABG results: PT/INR, D-dimer PT 11.8 Seconds (9.4-12.1) 09/01/16 05:10 - VTE Documentation of Mechanical Device: Graduated compression elastic hosiery Consult Discharge Plan - Plan Referrals: Evelia Madera MD [Primary Care Provider] -
[2016-09-18] MEDS: Aspirin 81 MG TAB.CHEW PO SCH (07:58)
--- NOTE | 2016-09-18 14:58 | Internal Med Progress Note ---
Date of Encounter: 09/18/16 Time of Encounter: 14:57 - Assessment and plan (1) CVA (cerebral vascular accident) Current Visit: Yes Status: Acute Assessment and plan: CPT O DTRs speech notes. Patient is progressing Qualifiers: Qualified Code(s): I63.529 - Cerebral infarction due to unspecified occlusion or stenosis of unspecified anterior cerebral artery (2) MVP (mitral valve prolapse) Current Visit: No Status: Acute Assessment and plan: Clinical problem - Time Spent With Patient less than 15 minutes - Subjective Interval history: The patient is improving and is able to concentrate better now on tasks at hand. And she is going to be made independent in the room. - Constitutional Vitals: Temp Pulse Resp BP Pulse Ox 98.4 F 68 16 133/77 94 L 09/18/16 07:20 09/18/16 07:20 09/18/16 07:20 09/18/16 07:20 09/18/16 07:20 General appearance: Present: A&O X 3, pleasant, no acute distress - Head Head exam: Present: atraumatic, normal inspection, normocephalic - Neck Neck exam general surgery: Present: supple, trachea midline. Absent: lymphadenopathy - Respiratory Respiratory exam: Present: CTAB. Absent: accessory muscle use, rales, rhonchi, wheezes - Cardiovascular Cardiovascular exam: Present: RRR, +S1, +S2. Absent: diastolic murmur, gallop, rubs, systolic murmur Internal Medicine: Result - Labs CBC & Chem 7: 09/16/16 05:10 09/16/16 05:10 Labs: Lab his great - ABG Interpretation ABG results: PT/INR, D-dimer PT 11.8 Seconds (9.4-12.1) 09/01/16 05:10 - VTE Documentation of Mechanical Device: Graduated compression elastic hosiery Consult Discharge Plan - Plan Referrals: Evelia Madera MD [Primary Care Provider] -
[2016-09-19] MEDS: Aspirin 81 MG TAB.CHEW PO SCH (08:14)
--- NOTE | 2016-09-19 13:06 | Internal Med Progress Note ---
Date of Encounter: 09/19/16 Time of Encounter: 13:05 - Assessment and plan (1) CVA (cerebral vascular accident) Current Visit: Yes Status: Acute Assessment and plan: Continuing to work with all of her therapist Qualifiers: Qualified Code(s): I63.529 - Cerebral infarction due to unspecified occlusion or stenosis of unspecified anterior cerebral artery (2) MVP (mitral valve prolapse) Current Visit: No Status: Acute Assessment and plan: Clinical problem - Time Spent With Patient less than 15 minutes - Subjective Interval history: The patient is improving and is able to concentrate better now on tasks at hand. And she is going to be made independent in the room. - Constitutional Vitals: Temp Pulse Resp BP Pulse Ox 98.1 F 57 16 105/58 95 09/19/16 07:00 09/19/16 07:00 09/19/16 07:00 09/19/16 07:00 09/19/16 07:00 General appearance: Present: A&O X 3, pleasant, no acute distress - Head Head exam: Present: atraumatic, normal inspection, normocephalic - Neck Neck exam general surgery: Present: supple, trachea midline. Absent: lymphadenopathy - Respiratory Respiratory exam: Present: CTAB. Absent: accessory muscle use, rales, rhonchi, wheezes - Cardiovascular Cardiovascular exam: Present: RRR, +S1, +S2. Absent: diastolic murmur, gallop, rubs, systolic murmur Internal Medicine: Result - Labs CBC & Chem 7: 09/16/16 05:10 09/16/16 05:10 Labs: Labs stable - ABG Interpretation ABG results: PT/INR, D-dimer PT 11.8 Seconds (9.4-12.1) 09/01/16 05:10 - VTE Documentation of Mechanical Device: Graduated compression elastic hosiery Consult Discharge Plan - Plan Referrals: Evelia Madera MD [Primary Care Provider] -
--- NOTE | 2016-09-19 22:36 | Internal Med Progress Note ---
Date of Encounter: 09/21/16 Time of Encounter: 11:47 - Assessment and plan (1) CVA (cerebral vascular accident) Current Visit: Yes Status: Acute Assessment and plan: PT OT continue to work and improving D, balance, transfer and activity of daily living Qualifiers: Qualified Code(s): I63.529 - Cerebral infarction due to unspecified occlusion or stenosis of unspecified anterior cerebral artery - Time Spent With Patient less than 15 minutes - Subjective Interval history: Feeling much better. blurred vision and double vision has improved significantly. feels that she is getting better. No headache. No shortness of breath. No chest pain. No confusion. Good oral intake. No pain. - Constitutional Vitals: Temp Pulse Resp BP Pulse Ox 97.4 F L 57 14 136/77 96 09/19/16 18:56 09/19/16 18:56 09/19/16 18:56 09/19/16 18:56 09/19/16 18:56 General appearance: Present: A&O X 3, pleasant, no acute distress - Respiratory Respiratory exam: Present: CTAB. Absent: accessory muscle use, rales, rhonchi, wheezes - Cardiovascular Cardiovascular exam: Present: RRR, +S1, +S2. Absent: diastolic murmur, gallop, rubs, systolic murmur - GI/Abdominal GI/Abdominal exam: Present: normal bowel sounds, soft, no peritoneal signs. Absent: distended, tenderness - Extremities Exam Extremities exam: Present: warm, radial pulses palpable and symetrical. Absent : calf tenderness, cyanotic, pedal edema - Neurological Exam Neurological exam: Present: alert, oriented X3 Internal Medicine: Result - Labs CBC & Chem 7: 09/16/16 05:10 09/16/16 05:10 - ABG Interpretation ABG results: PT/INR, D-dimer PT 11.8 Seconds (9.4-12.1) 09/01/16 05:10 - VTE Documentation of Mechanical Device: Graduated compression elastic hosiery Consult Discharge Plan - Plan Referrals: Evelia Madera MD [Primary Care Provider] -
[2016-09-20] MEDS: Aspirin 81 MG TAB.CHEW PO SCH (08:31)
[2016-09-21] MEDS: Aspirin 81 MG TAB.CHEW PO SCH (08:12)
[2016-09-22] MEDS: Aspirin 81 MG TAB.CHEW PO SCH (09:58)
--- NOTE | 2016-09-22 12:12 | Internal Med Progress Note ---
Date of Encounter: 09/22/16 Time of Encounter: 12:10 - Assessment and plan (1) CVA (cerebral vascular accident) Current Visit: Yes Status: Acute Assessment and plan: Patient had a CVA and is right now babe problem is some balance issues but in some visual disturbance. But she is improved considerably Qualifiers: Qualified Code(s): I63.529 - Cerebral infarction due to unspecified occlusion or stenosis of unspecified anterior cerebral artery (2) MVP (mitral valve prolapse) Current Visit: No Status: Acute Assessment and plan: Not of clinical importance at this time - Subjective Interval history: She is sitting in the dining room reading the paper and states that she is having no problems. She is cooperating with all modalities of therapy - Constitutional Vitals: Temp Pulse Resp BP Pulse Ox 98.1 F 57 18 120/68 98 09/22/16 06:00 09/22/16 06:00 09/22/16 06:00 09/22/16 06:00 09/22/16 06:00 General appearance: Present: A&O X 3, pleasant, no acute distress - Head Head exam: Present: atraumatic, normal inspection, normocephalic - Neck Neck exam general surgery: Present: supple, trachea midline. Absent: lymphadenopathy - Respiratory Respiratory exam: Present: CTAB. Absent: accessory muscle use, rales, rhonchi, wheezes - Cardiovascular Cardiovascular exam: Present: RRR, +S1, +S2. Absent: diastolic murmur, gallop, rubs, systolic murmur - GI/Abdominal GI/Abdominal exam: Present: normal bowel sounds, soft, no peritoneal signs. Absent: distended, tenderness Internal Medicine: Result - Labs CBC & Chem 7: 09/16/16 05:10 09/16/16 05:10 Labs: Labs - ABG Interpretation ABG results: PT/INR, D-dimer PT 11.8 Seconds (9.4-12.1) 09/01/16 05:10 - VTE Documentation of Mechanical Device: Graduated compression elastic hosiery Consult Discharge Plan - Plan Referrals: Evelia Madera MD [Primary Care Provider] -
[2016-09-22] MEDS: Ibuprofen 600 MG TABLET PO PRN (22:40)
[2016-09-23 05:58] LABS: Basophils % 0.4 %; Eosinophils # 0.1 K/mcL (0.0-0.6); Eosinophils % 2.6 %; Hematocrit 36.8 % (35.3-44.9); Hemoglobin 12.4 g/dL (11.5-15.4); Immature Granulocytes % 0.4 % (0-4); Lymphocytes # 1.5 K/mcL (0.6-4.6); Lymphocytes % 30.5 %; Mean Corpuscular HGB Conc 33.7 g/dL (31.6-35.5); Mean Corpuscular Hemoglobin 28.9 pg (28.0-33.3); Mean Corpuscular Volume 85.8 fL (83.0-100.0); Mean Platelet Volume 9.5 fL (9.4-12.4); Monocytes # 0.7 K/mcL (0.0-1.3); Monocytes % 14.1 %; Neutrophils # 2.6 K/mcL (1.6-8.9); Platelet Count 183 K/mcL (140-400); Red Blood Count 4.29 M/mcL (3.82-4.97); Red Cell Distribution Width 13.1 % (11.5-14.5)
[2016-09-23 06:07] LABS: BUN/Creatinine Ratio 17 (6-26); Blood Urea Nitrogen 15 mg/dL (7-20); Calcium 9.7 mg/dL (8.6-10.8); Carbon Dioxide 24 mEq/L (19-29); Chloride 108 mEq/L (98-109); Glucose 89 mg/dL (70-99); Osmolality,Calculated 296 (280-300); Potassium 3.9 mEq/L (3.5-4.5); Sodium 143 mEq/L (136-145); eGFR For African Americans > 60 (> 60); eGFR For Non-African Americans > 60 (> 60)
[2016-09-23] MEDS: Aspirin 81 MG TAB.CHEW PO SCH (09:15)
[2016-09-23] MEDS: Ibuprofen 600 MG TABLET PO PRN (21:08)
[2016-09-24] MEDS: Aspirin 81 MG TAB.CHEW PO SCH (08:11)
--- NOTE | 2016-09-24 13:41 | Internal Med Progress Note ---
Date of Encounter: 09/23/16 Time of Encounter: 13:00 - Assessment and plan (1) CVA (cerebral vascular accident) Current Visit: Yes Status: Acute Assessment and plan: Patient is working with PT OT TR and speech. Please see the note Qualifiers: Qualified Code(s): I63.529 - Cerebral infarction due to unspecified occlusion or stenosis of unspecified anterior cerebral artery (2) MVP (mitral valve prolapse) Current Visit: No Status: Acute Assessment and plan: Not a clinical problem - Time Spent With Patient less than 15 minutes - Subjective Interval history: Patient has a good attitude working with therapist of daily basis. - Constitutional Vitals: Temp Pulse Resp BP Pulse Ox 97.5 F L 59 16 113/62 96 09/24/16 07:00 09/24/16 07:00 09/24/16 07:00 09/24/16 07:00 09/24/16 07:00 General appearance: Present: A&O X 3, pleasant, no acute distress - Head Head exam: Present: atraumatic, normocephalic - Neck Neck exam general surgery: Present: supple, trachea midline. Absent: lymphadenopathy - Respiratory Respiratory exam: Present: CTAB. Absent: accessory muscle use, rales, rhonchi, wheezes - Cardiovascular Cardiovascular exam: Present: RRR, +S1, +S2. Absent: diastolic murmur, gallop, rubs, systolic murmur Internal Medicine: Result - Labs CBC & Chem 7: 09/23/16 05:25 09/23/16 05:25 Labs: Lab was normal - ABG Interpretation ABG results: PT/INR, D-dimer PT 11.8 Seconds (9.4-12.1) 09/01/16 05:10 - VTE Documentation of Mechanical Device: Graduated compression elastic hosiery Consult Discharge Plan - Plan Referrals: Evelia Madera MD [Primary Care Provider] -
--- NOTE | 2016-09-24 13:43 | Internal Med Progress Note ---
Date of Encounter: 09/24/16 Time of Encounter: 13:00 - Assessment and plan (1) CVA (cerebral vascular accident) Current Visit: Yes Status: Acute Assessment and plan: Working with therapist daily basis check note Qualifiers: Qualified Code(s): I63.529 - Cerebral infarction due to unspecified occlusion or stenosis of unspecified anterior cerebral artery (2) MVP (mitral valve prolapse) Current Visit: No Status: Acute Assessment and plan: Stable - Time Spent With Patient less than 15 minutes - Subjective Interval history: Patient has a good attitude working with therapist of daily basis. - Constitutional Vitals: Temp Pulse Resp BP Pulse Ox 97.5 F L 59 16 113/62 96 09/24/16 07:00 09/24/16 07:00 09/24/16 07:00 09/24/16 07:00 09/24/16 07:00 General appearance: Present: A&O X 3, pleasant, no acute distress - Head Head exam: Present: atraumatic, normal inspection, normocephalic - Neck Neck exam general surgery: Present: supple, trachea midline. Absent: lymphadenopathy - Respiratory Respiratory exam: Present: CTAB. Absent: accessory muscle use, rales, rhonchi, wheezes - Cardiovascular Cardiovascular exam: Present: RRR, +S1, +S2. Absent: diastolic murmur, gallop, rubs, systolic murmur Internal Medicine: Result - Labs CBC & Chem 7: 09/23/16 05:25 09/23/16 05:25 Labs: Lab is stable - ABG Interpretation ABG results: PT/INR, D-dimer PT 11.8 Seconds (9.4-12.1) 09/01/16 05:10 - VTE Documentation of Mechanical Device: Graduated compression elastic hosiery Consult Discharge Plan - Plan Referrals: Evelia Madera MD [Primary Care Provider] -
[2016-09-25] MEDS: Aspirin 81 MG TAB.CHEW PO SCH (08:40)
--- NOTE | 2016-09-25 12:19 | Physical Med Progress Note ---
Date of Encounter: 09/25/16 Time of Encounter: 12:13 Assessment and Plan (1) CVA (cerebral vascular accident) Current Visit: Yes Status: Acute Qualifiers: Qualified Code(s): I63.529 - Cerebral infarction due to unspecified occlusion or stenosis of unspecified anterior cerebral artery Physical Medicine-PN: Subj Interval history: PMR PCC Note Ms. Glover is scheduled for a family meeting. has been receiving patient care education today. She continues to require assistance for safe gait , maintaining balance. has been educated in use of gait belt, transfers and safety. received education regarding shower safety and ADLs. Her balance has improved with ADLS. Requires supervision for bathing and dressing. Patient will need grab bars and a tub transfer bench for home. Patient will require a wheelchair for home for independence when she is alone. Patient requires constant assist for ambulation. - Constitutional Vitals: Vital Signs Temp Pulse Resp BP Pulse Ox 09/25/16 07:00 97.3 F L 64 16 107/80 92 L 09/24/16 19:00 97.8 F 62 18 140/82 95 Intake and Output 09/24/16 09/25/16 09/25/16 23:59 07:59 15:59 Intake Total 240 / 240 240 / 240 240 / 240 Balance 240 / 240 240 / 240 240 / 240 Intake: Oral 240 / 240 240 / 240 240 / 240 Other: Meal Dinner Breakfast Breakfast Percent of Meal Consumed 100% 100% 100% # Voids 1 1 Physical Medicine-PN: Obj Data - Labs CBC & Chem 7: 09/23/16 05:25 09/23/16 05:25 - ABG Interpretation ABG results: PT/INR, D-dimer PT 11.8 Seconds (9.4-12.1) 09/01/16 05:10 - VTE Documentation of Mechanical Device: Graduated compression elastic hosiery Consult Discharge Plan - Plan Referrals: Evelai Madera MD [Primary Care Provider] -
--- NOTE | 2016-09-25 13:11 | Internal Med Progress Note ---
Date of Encounter: 09/25/16 Time of Encounter: 14:00 - Assessment and plan (1) CVA (cerebral vascular accident) Current Visit: Yes Status: Acute Assessment and plan: Patient is progressed severely since her admission here for recent CVA. Qualifiers: Qualified Code(s): I63.529 - Cerebral infarction due to unspecified occlusion or stenosis of unspecified anterior cerebral artery (2) MVP (mitral valve prolapse) Current Visit: No Status: Acute Assessment and plan: Not a clinical issue - Time Spent With Patient less than 15 minutes - Subjective Interval history: Patient has a good attitude working with therapist of daily basis. Continuing to improve. There is a family meeting today. - Constitutional Vitals: Temp Pulse Resp BP Pulse Ox 97.3 F L 64 16 107/80 92 L 09/25/16 07:00 09/25/16 07:00 09/25/16 07:00 09/25/16 07:00 09/25/16 07:00 General appearance: Present: A&O X 3, pleasant, no acute distress - Head Head exam: Present: atraumatic, normal inspection, normocephalic - Neck Neck exam general surgery: Present: supple, trachea midline. Absent: lymphadenopathy - Respiratory Respiratory exam: Present: CTAB. Absent: accessory muscle use, rales, rhonchi, wheezes - Cardiovascular Cardiovascular exam: Present: RRR, +S1, +S2. Absent: diastolic murmur, gallop, rubs, systolic murmur - GI/Abdominal GI/Abdominal exam: Present: normal bowel sounds, soft, no peritoneal signs. Absent: distended, tenderness Internal Medicine: Result - Labs CBC & Chem 7: 09/23/16 05:25 09/23/16 05:25 Labs: Lab as far - ABG Interpretation ABG results: PT/INR, D-dimer PT 11.8 Seconds (9.4-12.1) 09/01/16 05:10 - VTE Documentation of Mechanical Device: Graduated compression elastic hosiery Consult Discharge Plan - Plan Referrals: Evelia Madera MD [Primary Care Provider] -
[2016-09-26] MEDS: Aspirin 81 MG TAB.CHEW PO SCH (08:37)
--- NOTE | 2016-09-26 11:26 | Internal Med Progress Note ---
Date of Encounter: 09/26/16 Time of Encounter: 11:24 - Assessment and plan (1) CVA (cerebral vascular accident) Current Visit: Yes Status: Acute Assessment and plan: Patient had a CVA and is working with all of her therapist and has done very well Qualifiers: Qualified Code(s): I63.529 - Cerebral infarction due to unspecified occlusion or stenosis of unspecified anterior cerebral artery (2) MVP (mitral valve prolapse) Current Visit: No Status: Acute Assessment and plan: Not a clinical issue at this point - Time Spent With Patient less than 15 minutes - Subjective Interval history: Mrs. Nelson continues to improve. I believe she is being discharged for a company of her . He has been in for education. - Constitutional Vitals: Temp Pulse Resp BP Pulse Ox 98.2 F 67 16 117/61 96 09/26/16 07:00 09/26/16 07:00 09/26/16 07:00 09/26/16 07:00 09/26/16 07:00 General appearance: Present: A&O X 3, pleasant, no acute distress - Head Head exam: Present: atraumatic, normocephalic - Neck Neck exam general surgery: Present: supple, trachea midline. Absent: lymphadenopathy - Respiratory Respiratory exam: Present: CTAB. Absent: accessory muscle use, rales, rhonchi, wheezes - Cardiovascular Cardiovascular exam: Present: RRR, +S1, +S2. Absent: diastolic murmur, gallop, rubs, systolic murmur Internal Medicine: Result - Labs CBC & Chem 7: 09/23/16 05:25 09/23/16 05:25 Labs: Lab looks good - ABG Interpretation ABG results: PT/INR, D-dimer PT 11.8 Seconds (9.4-12.1) 09/01/16 05:10 - VTE Documentation of Mechanical Device: Graduated compression elastic hosiery Consult Discharge Plan - Plan Referrals: Evelia Madera MD [Primary Care Provider] -
[2016-09-26] MEDS: Ibuprofen 600 MG TABLET PO PRN (20:53)
[2016-09-27] MEDS: Aspirin 81 MG TAB.CHEW PO SCH (08:13)
--- NOTE | 2016-09-27 14:18 | Internal Med Progress Note ---
Date of Encounter: 09/27/16 Time of Encounter: 14:16 - Assessment and plan (1) CVA (cerebral vascular accident) Current Visit: Yes Status: Acute Assessment and plan: Patient has CVA and is doing very well Qualifiers: Qualified Code(s): I63.529 - Cerebral infarction due to unspecified occlusion or stenosis of unspecified anterior cerebral artery (2) MVP (mitral valve prolapse) Current Visit: No Status: Acute Assessment and plan: Not a clinical problem - Time Spent With Patient less than 15 minutes - Subjective Interval history: Please see [place] notes regarding today's trip outside. She is working with PT OT and TR and I believe should be home overnight on Friday and discharged following day - Constitutional Vitals: Temp Pulse Resp BP Pulse Ox 97.8 F 52 16 122/59 95 09/27/16 07:00 09/27/16 07:00 09/27/16 07:00 09/27/16 07:00 09/27/16 07:00 General appearance: Present: A&O X 3, pleasant, no acute distress - Head Head exam: Present: atraumatic, normal inspection, normocephalic - Neck Neck exam general surgery: Present: supple, trachea midline. Absent: lymphadenopathy - Respiratory Respiratory exam: Present: CTAB. Absent: accessory muscle use, rales, rhonchi, wheezes - Cardiovascular Cardiovascular exam: Present: RRR, +S1, +S2. Absent: diastolic murmur, gallop, rubs, systolic murmur Internal Medicine: Result - Labs CBC & Chem 7: 09/23/16 05:25 09/23/16 05:25 Labs: Labs stable - ABG Interpretation ABG results: PT/INR, D-dimer PT 11.8 Seconds (9.4-12.1) 09/01/16 05:10 - VTE Documentation of Mechanical Device: Graduated compression elastic hosiery Consult Discharge Plan - Plan Referrals: Evelia Madera MD [Primary Care Provider] - 10/11/16 2:00 pm
[2016-09-27] MEDS: Ibuprofen 600 MG TABLET PO PRN (22:12)
[2016-09-28] MEDS: Aspirin 81 MG TAB.CHEW PO SCH (08:45)
--- NOTE | 2016-09-28 13:20 | Internal Med Progress Note ---
Date of Encounter: 09/28/16 Time of Encounter: 13:19 - Assessment and plan (1) CVA (cerebral vascular accident) Current Visit: Yes Status: Acute Assessment and plan: Patient has CVA and is doing very well Qualifiers: Qualified Code(s): I63.529 - Cerebral infarction due to unspecified occlusion or stenosis of unspecified anterior cerebral artery - Time Spent With Patient less than 15 minutes - Subjective Interval history: Feeling much better. blurred vision and double vision has improved significantly. feels that she is getting better. No headache. No shortness of breath. No chest pain. No confusion. Good oral intake. No pain. - Constitutional Vitals: Temp Pulse Resp BP Pulse Ox 97.9 F 55 20 116/61 98 09/28/16 06:44 09/28/16 06:44 09/28/16 06:44 09/28/16 06:44 09/28/16 06:44 General appearance: Present: A&O X 3, pleasant, no acute distress - Cardiovascular Cardiovascular exam: Present: RRR, +S1, +S2. Absent: diastolic murmur, gallop, rubs, systolic murmur Internal Medicine: Result - Labs CBC & Chem 7: 09/23/16 05:25 09/23/16 05:25 - ABG Interpretation ABG results: PT/INR, D-dimer PT 11.8 Seconds (9.4-12.1) 09/01/16 05:10 - VTE Documentation of Mechanical Device: Graduated compression elastic hosiery Consult Discharge Plan - Plan Referrals: Evelia Madera MD [Primary Care Provider] - 10/11/16 2:00 pm
[2016-09-29] MEDS: Aspirin 81 MG TAB.CHEW PO SCH (08:16)
[2016-09-30] MEDS: Aspirin 81 MG TAB.CHEW PO SCH ×2 (09:56→10:09)
[2016-09-30] MEDS: Sennosides/Docusate Sodium TABLET PO PRN (10:09)
--- NOTE | 2016-09-30 14:32 | Internal Med Progress Note ---
Date of Encounter: 09/30/16 Time of Encounter: 14:31 - Assessment and plan (1) CVA (cerebral vascular accident) Current Visit: Yes Status: Acute Assessment and plan: CVA and she is had a very nice response. She has done well and has worked with PT OT DR and speech Qualifiers: Qualified Code(s): I63.529 - Cerebral infarction due to unspecified occlusion or stenosis of unspecified anterior cerebral artery (2) MVP (mitral valve prolapse) Current Visit: No Status: Acute Assessment and plan: Not a clinical problem - Time Spent With Patient less than 15 minutes - Subjective Interval history: Patient had her overnight and it went pretty well. Please see PT OT notes. Patient be discharged on Friday morning - Constitutional Vitals: Temp Pulse Resp BP Pulse Ox 98.2 F 60 20 120/80 94 L 09/29/16 07:00 09/29/16 07:00 09/29/16 07:00 09/29/16 07:00 09/29/16 07:00 General appearance: Present: A&O X 3, pleasant, no acute distress - Head Head exam: Present: atraumatic, normocephalic - Neck Neck exam general surgery: Present: supple, trachea midline. Absent: lymphadenopathy - Respiratory Respiratory exam: Present: CTAB. Absent: accessory muscle use, rales, rhonchi, wheezes - Cardiovascular Cardiovascular exam: Present: RRR, +S1, +S2. Absent: diastolic murmur, gallop, rubs, systolic murmur - GI/Abdominal GI/Abdominal exam: Present: normal bowel sounds, soft, no peritoneal signs. Absent: distended, tenderness Internal Medicine: Result - Labs CBC & Chem 7: 09/23/16 05:25 09/23/16 05:25 Labs: Lab looks good - ABG Interpretation ABG results: PT/INR, D-dimer PT 11.8 Seconds (9.4-12.1) 09/01/16 05:10 - VTE Documentation of Mechanical Device: Graduated compression elastic hosiery Consult Discharge Plan - Plan Referrals: Evelia Madera MD [Primary Care Provider] - 10/11/16 2:00 pm
[2016-10-01] MEDS: Aspirin 81 MG TAB.CHEW PO SCH (09:13)
--- NOTE | 2016-10-01 13:07 | Internal Med Progress Note ---
Date of Encounter: 10/01/16 Time of Encounter: 13:05 - Assessment and plan (1) CVA (cerebral vascular accident) Current Visit: Yes Status: Acute Assessment and plan: Patient is here for CVA and has done very well ready to be discharged Qualifiers: Qualified Code(s): I63.529 - Cerebral infarction due to unspecified occlusion or stenosis of unspecified anterior cerebral artery (2) MVP (mitral valve prolapse) Current Visit: No Status: Acute Assessment and plan: Clinical problem - Time Spent With Patient less than 15 minutes - Subjective Interval history: Patient had her overnight and it went pretty well. Please see PT OT notes. Patient be discharged on Friday morning. Patient's done exceedingly well and will be discharged tomorrow to company of her - Constitutional Vitals: Temp Pulse Resp BP Pulse Ox 97.6 F 58 18 139/80 94 L 10/01/16 07:00 10/01/16 07:00 10/01/16 07:00 10/01/16 07:00 10/01/16 07:00 General appearance: Present: A&O X 3, pleasant, no acute distress - Head Head exam: Present: atraumatic, normal inspection, normocephalic - Neck Neck exam general surgery: Present: supple, trachea midline. Absent: lymphadenopathy - Respiratory Respiratory exam: Present: CTAB. Absent: accessory muscle use, rales, rhonchi, wheezes - Cardiovascular Cardiovascular exam: Present: RRR, +S1, +S2. Absent: diastolic murmur, gallop, rubs, systolic murmur Internal Medicine: Result - Labs CBC & Chem 7: 09/23/16 05:25 09/23/16 05:25 Labs: Lab is normal - ABG Interpretation ABG results: PT/INR, D-dimer PT 11.8 Seconds (9.4-12.1) 09/01/16 05:10 - VTE Documentation of Mechanical Device: Graduated compression elastic hosiery Consult Discharge Plan - Plan Referrals: Evelia Madera MD [Primary Care Provider] - 10/11/16 2:00 pm
--- NOTE | 2016-10-01 13:43 | Discharge Summary ---
Date of Encounter: 10/02/16 Time of Encounter: 13:42 - Discharge Diagnosis (1) CVA (cerebral vascular accident) Priority: Primary Status: Acute Comments: Symptoms are much improved but we do recommend that someone ambulate with her anytime she is up. She knows the wheelchair though quite nicely Qualifiers: Qualified Code(s): I63.529 - Cerebral infarction due to unspecified occlusion or stenosis of unspecified anterior cerebral artery (2) MVP (mitral valve prolapse) Priority: Secondary Status: Acute Comments: This is not a clinical issue at this point - Discharge Medications Home Medications: No Known Home Drugs 08/31/16 [History] Allergies/Adverse Reactions: Allergies No Known Allergies Allergy (Verified 08/31/16 17:08) Date of admission: 08/31/16 16:45 Primary care physician: Evelia Madera MD Consults: 08/31/16 17:10 Consult to Occupational Therapy [CONS] Routine Comment: Evaluate, develop and implement POC Consult to Physical Therapy [CONS] Routine Comment: Evaluate, develop and implement POC Consult to Recreational Therapy [CONS] Routine Comment: Evaluate, develop and implement POC Consult to Speech Therapy [CONS] Routine Comment: Evaluate, develop and implement POC Reason for Consult: speech impairment Call Completed: Yes 08/31/16 17:13 Consult to Psychology [CONS] Routine Consulting Provider: Ramila Richards Reason for Consult: CVA Call Completed: No Discharging clinician: Rodrigo Pathak Anticipated date of discharge: 10/01/16 - Patient Status Disposition: Home, Self-Care Condition: Good Functional capacity at discharge: wheelchair bound Overall status at discharge: patient is progressing back to baseline - Discharge Instructions Follow Up With: [facility] [Other] - 12/04/16 2:00 am ( followup after CVA) Evelia Madera MD [Primary Care Provider] - 10/11/16 2:00 pm Interval History: Patient was brought here for rehabilitation after CVA. Hospital course: Ms. Glover is a 71 year old female Age is done exceedingly well. - Time Spent with Patient Total time spent providing and/or coordinating discharge services: Less than 30 minutes - Constitutional Vitals: Temp Pulse Resp BP Pulse Ox 97.6 F 58 18 139/80 94 L 10/01/16 07:00 10/01/16 07:00 10/01/16 07:00 10/01/16 07:00 10/01/16 07:00 General appearance: Present: A&O X 3, pleasant, no acute distress - Head Head exam: Present: atraumatic, normal inspection, normocephalic - Neck Neck exam general surgery: Present: supple, trachea midline. Absent: lymphadenopathy - Respiratory Respiratory exam: Present: CTAB. Absent: accessory muscle use, rales, rhonchi, wheezes - Cardiovascular Cardiovascular exam: Present: RRR, +S1, +S2. Absent: diastolic murmur, gallop, rubs, systolic murmur - VTE Documentation of Mechanical Device: Graduated compression elastic hosiery
[2016-10-02 06:51] VITALS: BP 139/86
[2016-10-02] MEDS: Aspirin 81 MG TAB.CHEW PO SCH (10:10)
== END 2016-10-02 12:05 | disposition home or self-care (01) | DRG 57 ==
LOC: INPGRE 16:45
PROVIDERS: ADMIT Internal Medicine; ATTEND Internal Medicine